=== PATIENT | male | born 1985 | race American Indian/Alaskan Native ===

== ENCOUNTER 2017-02-27 14:52 | Emergency (ER) | payer OTHER, MEDICAID ==
[2017-02-27] MEDS ORDERED: Diphtheria,Pertussis(Acell),Tetanus Vaccine 0.5 ML SDV IM ONE (14:53)
[2017-02-27] MEDS ORDERED: Lidocaine 1% 30 ML SDV INJECT ONE (14:53)
[2017-02-27] MEDS ORDERED: Acetaminophen/HYDROcodone 325-10 MG Tab PO ONE (15:00)
[2017-02-27] MEDS ORDERED: Cephalexin 500 MG Cap PO ONE (15:00)
[2017-02-27] MEDS ORDERED: Bupivacaine 0.25% 10 ML SDV INJECT ONE (15:05)
--- NOTE | 2017-02-27 15:05 | EDM.PDOC ---
ED HPI GENERAL MEDICAL PROBLEM - General Chief Complaint: Laceration Stated Complaint: BLEEDING, LEFT HAND CUT BY CHAINSAW Time Seen by Provider: 02/27/17 14:55 Source of Information: Reports: Patient, RN, RN Notes Reviewed History Limitations: Reports: No Limitations - History of Present Illness INITIAL COMMENTS - FREE TEXT/NARRATIVE: Arrives to ER by POV with c/o cuts to left hand by a chainsaw. Denies any other injury. Last tetanus vaccine >10yrs ago per pt. Onset: Today, Sudden Onset Date: 02/27/17 Onset Time: 14:30 Duration: Constant Location: Reports: Upper Extremity, Left Quality: Reports: Ache Severity: Severe Improves with: Reports: None Worsens with: Reports: None Associated Symptoms: Reports: No Other Symptoms Left Hand Pain Score (Numeric/FACES): 10 - Related Data Allergies Allergy/AdvReac Type Severity Reaction Status Date / Time tramadol Allergy Itching Verified 02/27/17 15:17 Home Meds: Home Meds . [No Known Home Meds] 08/07/14 [History] Past Medical History - Past Health History Medical/Surgical History: Denies Medical/Surgical History Social & Family History - Family History Family Medical History: Noncontributory - Tobacco Use Smoking Status *Q: Never Smoker Years of Tobacco use: 3 Used Tobacco, but Quit: No Second Hand Smoke Exposure: Yes - Alcohol Use Days Per Week of Alcohol Use: 0 - Recreational Drug Use Recreational Drug Use: No - Living Situation & Occupation Living situation: Reports: with Family Occupation: Employed Review of Systems - Review of Systems Review Of Systems: ROS reveals no pertinent complaints other than HPI. ED EXAM, GENERAL - Physical Exam Exam: See Below Exam Limited By: No Limitations General Appearance: Alert, WD/WN, No Apparent Distress, Anxious Nose: Normal Inspection Throat/Mouth: Normal Inspection Head: Atraumatic, Normocephalic Neck: Normal Inspection Respiratory/Chest: No Respiratory Distress Cardiovascular: Normal Peripheral Pulses Peripheral Pulses: 3+: Radial (L), Radial (R) Back Exam: Normal Inspection Extremities: Normal Range of Motion (no tendon rupture/laceration to left hand) , Normal Capillary Refill, Other (jagged, irregular lacerations to dorsum of left hand and proximal fingers 2-5 to depth of muscle, bleeding controlled, no FB) Neurological: Alert, Oriented, CN II-XII Intact, Normal Cognition, Normal Gait, No Motor/Sensory Deficits Psychiatric: Anxious ED TRAUMA EXTREMITY PROCEDURES - Laceration/Wound Repair Left Dorsal Hand Lac/Wound Length In cm: 11 Appearance: Muscle, Stellate, Irregular, Clean Distal NVT: Neuro & Vascular Intact, No Tendon Injury Anesthetic Type: Other (Regional nerve block) Local Anesthesia - Lidocaine (Xylocaine): 1% Plain Local Anesthesia - Bupivicaine (Marcaine): 0.25% Plain Local Anesthetic Volume: Other (20cc bupivicaine, 20cc Lidocaine) Skin Prep: Chlorhexidine (Hibiciens), Saline Saline Irrigation (cc's): 1,000 Exploration/Debridement/Repair: Wound Explored, In a Bloodless Field, Explored to Base, Moderate Debridement, Moderately Undermined Closed With: Sutures Suture Size: 3-0 # of Sutures: 30 Suture Type: Nylon, Interrupted Sterile Dressing Applied: Nurse Tetanus Status Addressed: Yes Complications: No - Splinting Left Upper Extremity Splint Site: left hand Pre-Procedure NV Status: Normal Post-Procedure NV Status: Normal Splint Material: Fiberglass Splint Design: Volar Applied & Form Fitted By: Provider Provider Post-Splint Application NV Check: NV Status Normal, Good Position Complications: No Course - Vital Signs Last Recorded V/S: Last Vital Signs Temp 36.6 C 02/27/17 15:06 Pulse 100 02/27/17 15:06 Resp 20 02/27/17 15:06 BP 136/96 H 02/27/17 15:06 Pulse Ox 100 02/27/17 15:06 - Orders/Labs/Meds Orders: Active Orders 24 hr Category Date Time Status Vaccines to be Administered [RC] PER UNIT ROUTINE Care 02/27/17 14:53 Active Meds: Medications Discontinued Medications Generic Name Dose Route Start Last Admin Trade Name Freq PRN Reason Stop Dose Admin Hydrocodone Bitart/Acetaminophen 1 tab 02/27/17 15:00 02/27/17 15:16 [place] 325-10 Mg PO 02/27/17 15:01 1 tab ONETIME ONE Administration Bacitracin Confirm 02/27/17 16:41 02/27/17 16:49 Bacitracin Oint 1 Gm Administered 02/27/17 16:42 1 dose Dose Administration 1 dose .ROUTE .STK-MED ONE Bupivacaine HCl 20 ml 02/27/17 15:05 02/27/17 15:17 Sensorcaine-Mpf 0.25% INJECT 02/27/17 15:06 20 ml ONETIME ONE Administration Cephalexin 500 mg 02/27/17 15:00 02/27/17 15:16 Keflex PO 02/27/17 15:01 500 mg ONETIME ONE Administration Diphtheria/Tetanus/Acell Pertussis 0.5 ml 02/27/17 14:53 02/27/17 15:04 Adacel IM 02/27/17 14:54 0.5 ml .ONCE ONE Administration Lidocaine HCl 30 ml 02/27/17 14:53 02/27/17 15:05 Xylocaine-Mpf 1% INJECT 02/27/17 14:54 30 ml ONETIME ONE Administration Departure - Departure Time of Disposition: 17:00 Disposition: Home, Self-Care 01 Condition: Good Clinical Impression: Work related injury Laceration of left hand Qualifiers: Encounter type: initial encounter Foreign body presence: without foreign body Qualified Code(s): S61.412A - Laceration without foreign body of left hand, initial encounter - Discharge Information Instructions: Laceration Care, Adult, [id number] Forms: ED Department Discharge Additional Instructions: Follow up in clinic for wound recheck in 4 days. Follow up in clinc for suture removal in 7 to 10 days. Return to ER if any signs of infection develop. Rx: Cephalexin 500mg Rx: [place] 5mg/325mg
[2017-02-27 15:15] VITALS: BP 136/96
[2017-02-27] MEDS ORDERED: Bacitracin Oint 1 GM U/D Packet ONE (16:41)
[2017-03-08] MEDS ORDERED: Bacitracin Oint 1 GM U/D Packet TOP ONE (06:51)
== END 2017-02-27 17:13 | disposition home or self-care (01) ==
LOC: DL.ED 14:52
DX: S61.412A Laceration without foreign body of left hand, initial encounter (principal); Z23 Encounter for immunization; Z88.6 Allergy status to analgesic agent; W29.3XXA Contact with powered garden and outdoor hand tools and machinery, initial encounter
CPT/HCPCS: 12004; 90471; 90715; 99283; A9270

== ENCOUNTER 2017-03-03 09:18 | Emergency (ER) | payer OTHER, MEDICAID ==
[2017-03-03 09:34] VITALS: BP 130/78
--- NOTE | 2017-03-03 09:43 | EDM.PDOC ---
ED HPI GENERAL MEDICAL PROBLEM - General Chief Complaint: Upper Extremity Injury/Pain Stated Complaint: [id number] WORKERS COMP LEFT HAND Time Seen by Provider: 03/03/17 09:38 Source of Information: Reports: Patient History Limitations: Reports: No Limitations - History of Present Illness INITIAL COMMENTS - FREE TEXT/NARRATIVE: 31 yo [place] Male seen in ER on 02/27/2017 for laceration of hand. Pt. here for wound check. Pt. taking oral antibiotic as prescribed. Pt. requesting more narcotic medications. Onset Date: 02/27/17 Onset Time: 12:00 Duration: Day(s): Location: Reports: Upper Extremity, Left Quality: Reports: Ache Severity: Moderate Improves with: Reports: None Worsens with: Reports: None Context: Reports: Trauma Associated Symptoms: Reports: No Other Symptoms Hand Pain Score (Numeric/FACES): 8 - Related Data Allergies Allergy/AdvReac Type Severity Reaction Status Date / Time tramadol Allergy Itching Verified 02/27/17 15:17 Home Meds: Home Meds . [No Known Home Meds] 08/07/14 [History] Past Medical History - Past Health History Medical/Surgical History: Denies Medical/Surgical History - Infectious Disease History Infectious Disease History: Reports: Hepatitis C Social & Family History - Family History Family Medical History: Noncontributory - Tobacco Use Smoking Status *Q: Never Smoker Years of Tobacco use: 3 Packs/Tins Daily: 0.6 Used Tobacco, but Quit: No Second Hand Smoke Exposure: Yes - Caffeine Use Caffeine Use: Reports: Coffee - Alcohol Use Days Per Week of Alcohol Use: 0 - Recreational Drug Use Recreational Drug Use: No - Living Situation & Occupation Living situation: Reports: with Family Occupation: Employed Review of Systems - Review of Systems Review Of Systems: See Below Constitutional: Reports: No Symptoms Eyes: Reports: No Symptoms Ears: Reports: No Symptoms Nose: Reports: No Symptoms Mouth/Throat: Reports: No Symptoms Respiratory: Reports: No Symptoms Cardiovascular: Reports: No Symptoms GI/Abdominal: Reports: No Symptoms Genitourinary: Reports: No Symptoms Musculoskeletal: Reports: Hand Pain (left dorsal) Skin: Reports: Wound (sutures in place and wound w/o signs of infection w/o drainage) Neurological: Reports: No Symptoms Psychiatric: Reports: No Symptoms ED EXAM, GENERAL - Physical Exam Exam: See Below Exam Limited By: No Limitations General Appearance: Alert, No Apparent Distress Eye Exam: Bilateral Eye: PERRL Ears: Normal External Exam Nose: Normal Inspection Throat/Mouth: Normal Inspection, Normal Lips Head: Atraumatic Neck: Normal Inspection Respiratory/Chest: No Respiratory Distress Cardiovascular: Normal Peripheral Pulses Peripheral Pulses: 2+: Radial (L), Radial (R) GI/Abdominal: Normal Bowel Sounds Back Exam: Normal Inspection Extremities: Normal Inspection, Other (left dorsal hand with wound edges together and no redness and no drainage) Neurological: Alert, Oriented, CN II-XII Intact, Normal Cognition Psychiatric: Normal Affect Skin Exam: Wound/Incision (wound edges together and no signs of infection w/ min. swelling) Lymphatic: No Adenopathy ED TRAUMA EXTREMITY PROCEDURES - Additional/Other Procedure(s) Other (Free Text) Procedure(s): Pt. wound of left dorsal hand inspected. No signs of infection and sutures in place. Dry gauze dressing applied w/ cling wrap and yu wrap Course - Vital Signs Last Recorded V/S: Last Vital Signs Temp 36.2 C 03/03/17 09:32 Pulse 104 H 03/03/17 09:32 Resp 16 03/03/17 09:32 BP 130/78 03/03/17 09:32 Pulse Ox 99 03/03/17 09:32 Departure - Departure Time of Disposition: 09:45 Disposition: Home, Self-Care 01 Condition: Good Clinical Impression: Laceration of hand Qualifiers: Encounter type: sequela Foreign body presence: without foreign body Laterality : left Qualified Code(s): S61.412S - Laceration without foreign body of left hand, sequela - Discharge Information Additional Instructions: Keep dressing in place X 48 hours Keep left hand elevated above level of heart to decrease swelling F/U w/ PCP for wound evaluation on Sunday03/05/2017 For Pain: NEURONTIN 100mg TID # 10 Also for pain take TYLENOL ES 500mg QID ( otc)
[2017-03-03] MEDS ORDERED: Lidocaine 2% Jelly 5 ML Tube TOP ONE (09:44)
== END 2017-03-03 10:00 | disposition home or self-care (01) ==
LOC: DL.ED 09:18
DX: S61.412D Laceration without foreign body of left hand, subsequent encounter (principal); Z88.6 Allergy status to analgesic agent; X58.XXXD Exposure to other specified factors, subsequent encounter
CPT/HCPCS: 99282

== ENCOUNTER 2021-03-02 20:12 | Emergency (ER) | payer SELFPAY | END 2021-03-02 20:33 | disposition left against medical advice (07) | LOC: DL.ED 20:12 | DX: Z53.21 Procedure and treatment not carried out due to patient leaving prior to being seen by health care provider (principal) ==

== ENCOUNTER 2022-07-13 21:31 | Emergency (ER) | payer MEDICAID | END 2022-07-13 22:12 | disposition left against medical advice (07) | LOC: DL.ED 21:31 | DX: Z53.21 Procedure and treatment not carried out due to patient leaving prior to being seen by health care provider (principal) | CPT/HCPCS: 71045 ==

== ENCOUNTER 2022-10-18 02:35 | Emergency (ER) | payer MEDICAID ==
[2022-10-18] MEDS ORDERED: Sodium Chloride 0.9% 1,000 ML IV ONE (02:59)
[2022-10-18 03:06] LABS: BASOPHILS PERCENT AUTO 0.5 % (0.0-1.0); EOSINOPHILS PERCENT AUTO 4.8 % (1.0-3.0); HEMATOCRIT 43.1 % (40.0-54.0); HEMOGLOBIN 14.9 g/dL (14.0-18.0); LYMPHOCYTES PERCENT AUTO 51.1 % (20.5-50.1); MEAN CORPUSCULAR HEMOGLOBIN 31.1 pg (27.0-34.0); MEAN CORPUSCULAR HGB CONC 34.6 g/dL (33.0-35.0); MONOCYTES PERCENT AUTO 7.7 % (2-8); NEUTROPHILS PERCENT AUTO 35.9 % (42.2-75.2); PLATELET COUNT,PLT 303 10^3/uL (150-450); RED BLOOD CELL COUNT 4.79 10^6/uL (4.6-6.2); WHITE BLOOD CELL COUNT,WBC 8.6 10^3/uL (5.0-10.0)
[2022-10-18 03:11] LABS: AMPHETAMINES,URINE POSITIVE (NEGATIVE); BARBITURATES,URINE NEGATIVE (NEGATIVE); BENZODIAZEPINE,URINE NEGATIVE (NEGATIVE); MDMA (ECSTASY), URINE NEGATIVE (NEGATIVE); METHADONE,URINE NEGATIVE (NEGATIVE); METHAMPHETAMINES,URINE POSITIVE (NEGATIVE); OPIATES,URINE NEGATIVE (NEGATIVE); OXYCODONE,URINE NEGATIVE (NEGATIVE); PHENCYCLIDINE,URINE NEGATIVE (NEGATIVE); TCA,URINE NEGATIVE (NEGATIVE)
[2022-10-18 03:14] LABS: A/G RATIO 1.2; ALANINE AMINOTRANSFERASE,ALT 35 U/L (16-63); ALBUMIN 3.9 g/dL (3.4-5.0); ALKALINE PHOSPHATASE 81 U/L (46-116); ANION GAP 14.1 mEq/L (7-13); ASPARTATE AMNIOTRANSFERASE,AST 25 U/L (15-37); BILIRUBIN TOTAL 0.2 mg/dL (0.2-1.0); BLOOD UREA NITROGEN,BUN 12 mg/dL (7-18); BUN/CREATININE RATIO 12.6 (No establ ref range); CARBON DIOXIDE,CO2 24 mmol/L (21-32); CHLORIDE,CL 106 mmol/L (98-107); CREATININE 0.95 mg/dL (0.70-1.30); ESTIMATED GFR 106 mL/min (>=60); ETHANOL BLOOD MEDICAL 281 mg/dL (0); GLUCOSE RANDOM 103 mg/dL (70-99); POTASSIUM,K 3.1 mmol/L (3.5-5.1); PROTEIN TOTAL,TP 7.1 g/dL (6.4-8.2); SODIUM,NA 141 mmol/L (136-145)
== END 2022-10-18 06:34 | disposition left against medical advice (07) ==
LOC: DL.ED 02:35
DX: F10.920 Alcohol use, unspecified with intoxication, uncomplicated (principal); Y90.8 Blood alcohol level of 240 mg/100 ml or more; Z88.5 Allergy status to narcotic agent; Z91.040 Latex allergy status
CPT/HCPCS: 36415; 80053; 80305-QW; 80307; 85025; 93005; 96360; 99285-25; C1758; J7030

== ENCOUNTER 2023-01-15 19:49 | Emergency (ER) | payer MEDICAID ==
[2023-01-15] MEDS ORDERED: Sodium Chloride 0.9% 10 ML Syringe FLUSH PRN (19:55)
[2023-01-15] MEDS ORDERED: Ondansetron 4 MG/2 ML SDV IVPUSH ONE (19:55)
[2023-01-15] MEDS ORDERED: Sodium Chloride 0.9% 1,000 ML IV ONE (19:55)
[2023-01-15] MEDS ORDERED: fentaNYL 100 MCG/2 ML SDV IVPUSH ONE ×2 (19:55→23:56)
[2023-01-15 20:26] LABS: BASOPHILS PERCENT AUTO 0.3 % (0.0-1.0); EOSINOPHILS PERCENT AUTO 3.5 % (1.0-3.0); HEMATOCRIT 43.5 % (40.0-54.0); HEMOGLOBIN 15.1 g/dL (14.0-18.0); LYMPHOCYTES PERCENT AUTO 24.9 % (20.5-50.1); MEAN CORPUSCULAR HEMOGLOBIN 31.5 pg (27.0-34.0); MEAN CORPUSCULAR HGB CONC 34.7 g/dL (33.0-35.0); MEAN CORPUSCULAR VOLUME 90.8 fL (80-100); NEUTROPHILS PERCENT AUTO 63.3 % (42.2-75.2); PLATELET COUNT,PLT 294 10^3/uL (150-450); RED BLOOD CELL COUNT 4.79 10^6/uL (4.6-6.2)
[2023-01-15 20:51] LABS: A/G RATIO 1.1; ALBUMIN 4.1 g/dL (3.4-5.0); ANION GAP 14.5 mEq/L (7-13); BILIRUBIN TOTAL 0.3 mg/dL (0.2-1.0); CALCIUM 8.5 mg/dL (8.5-10.1); CREATININE 1.15 mg/dL (0.70-1.30); EST CRCL DRUG DOSING (CG) 97.47 mL/min; POTASSIUM,K 3.5 mmol/L (3.5-5.1); PROTEIN TOTAL,TP 7.9 g/dL (6.4-8.2)
[2023-01-15 20:53] LABS: INR 0.9 (0.9-1.2); PROTHROMBIN TIME 9.3 SEC (9.0-12.0)
[2023-01-15] MEDS ORDERED: Ketamine 500 MG in Sodium Chloride 0.9% 500 ML IV ONE (21:32)
[2023-01-15] MEDS ORDERED: Midazolam 50 MG in Sodium Chloride 0.9% 40 ML IV SCH (21:45)
[2023-01-15 22:43] LABS: O2 DELIVERY DEVICE VENTILATOR
[2023-01-15 22:44] LABS: BASE EXCESS ARTERIAL -6 mmol/L ((-2)-(+3)); BICARBONATE,ARTERIAL 19.1 mmol/L (22-26); O2 SATURATION ARTERIAL 99 % (95-100); PCO2 ARTERIAL 40 mmHg (35-45); PO2 ARTERIAL 142 mmHg (70-100)
[2023-01-15 22:47] LABS: ALLEN TEST positive
[2023-01-15] MEDS ORDERED: Albuterol/Ipratropium 3.0-0.5 MG/3 ML Neb Soln ONE (23:21)
[2023-01-15 23:26] LABS: APPEARANCE,URINE SLIGHTLY CLOUDY (CLEAR); BILIRUBIN,URINE NEGATIVE (NEGATIVE); COLOR,URINE YELLOW (YELLOW); GLUCOSE,URINE NEGATIVE (NEGATIVE); KETONES,URINE NEGATIVE (NEGATIVE); LEUKOCYTE ESTERASE,URINE NEGATIVE (NEGATIVE); NITRITE,URINE NEGATIVE (NEGATIVE); OCCULT BLOOD,URINE NEGATIVE (NEGATIVE); PH,URINE 5.5 (5.0-9.0); PROTEIN,URINE 30 (NEGATIVE); UROBILINOGEN,URINE 0.2 mg/dL (0.2-1.0)
[2023-01-15 23:31] LABS: AMPHETAMINES,URINE POSITIVE (NEGATIVE); BARBITURATES,URINE NEGATIVE (NEGATIVE); BENZODIAZEPINE,URINE NEGATIVE (NEGATIVE); MDMA (ECSTASY), URINE NEGATIVE (NEGATIVE); METHADONE,URINE NEGATIVE (NEGATIVE); METHAMPHETAMINES,URINE POSITIVE (NEGATIVE); OPIATES,URINE NEGATIVE (NEGATIVE); OXYCODONE,URINE NEGATIVE (NEGATIVE); PHENCYCLIDINE,URINE NEGATIVE (NEGATIVE); TCA,URINE NEGATIVE (NEGATIVE)
[2023-01-15 23:34] LABS: AMORPHOUS SEDIMENT,URINE MODERATE /HPF (NOT SEEN); BACTERIA,URINE MODERATE /HPF (0-FEW/HPF); EPITHELIAL CELLS,URINE OCCASIONAL /HPF (NOT SEEN); RBC,URINE NOT SEEN /HPF (0-5); WBC,URINE NOT SEEN /HPF (0-5/HPF)
[2023-01-15] MEDS ORDERED: fentaNYL 500 MCG in Sodium Chloride 0.9% 50 ML IV SCH (23:45)
[2023-01-15] MEDS ORDERED: fentaNYL 100 MCG/2 ML SDV ONE (23:49)
== END 2023-01-16 02:45 ==
LOC: DL.ED 19:49
DX: F15.129 Other stimulant abuse with intoxication, unspecified (principal); F10.920 Alcohol use, unspecified with intoxication, uncomplicated; R40.2422 Glasgow coma scale score 9-12, at arrival to emergency department; Z91.040 Latex allergy status; Z88.5 Allergy status to narcotic agent; Y04.0XXA Assault by unarmed brawl or fight, initial encounter; Y90.6 Blood alcohol level of 120-199 mg/100 ml
CPT/HCPCS: 31500; 36415; 36600; 43752; 51702; 70450; 70486; 71045; 72125; 80053; 80305-QW; 80307; 81001; 82803; 85025; 85610; 85730; 94640; 96361; 96365; 96366; 96367; 96368; 96375; 96376; 99285; 99285-25; J2250; J2405; J3010; J3490; J7030; J7040; J7620-GY

== ENCOUNTER 2023-10-20 03:44 | Emergency (ER) | payer SELFPAY ==
[2023-10-20 03:51] LABS: BASOPHILS PERCENT AUTO 0.3 % (0.0-1.0); EOSINOPHILS PERCENT AUTO 1.3 % (1.0-3.0); HEMATOCRIT 43.5 % (40.0-54.0); LYMPHOCYTES PERCENT AUTO 41.6 % (20.5-50.1); MEAN CORPUSCULAR HEMOGLOBIN 31.2 pg (27.0-34.0); MEAN CORPUSCULAR HGB CONC 34.5 g/dL (33.0-35.0); MEAN CORPUSCULAR VOLUME 90.4 fL (80-100); MONOCYTES PERCENT AUTO 11.1 % (2-8); NEUTROPHILS PERCENT AUTO 45.7 % (42.2-75.2); PLATELET COUNT,PLT 266 10^3/uL (150-450); RED BLOOD CELL COUNT 4.81 10^6/uL (4.6-6.2); WHITE BLOOD CELL COUNT,WBC 9.2 10^3/uL (5.0-10.0)
[2023-10-20] MEDS: Sodium Chloride 0.9% 1,000 ML IV ONE (04:10)
[2023-10-20 04:14] LABS: A/G RATIO 1.2; ALANINE AMINOTRANSFERASE,ALT 33 U/L (16-63); ALBUMIN 3.9 g/dL (3.4-5.0); ALKALINE PHOSPHATASE 136 U/L (46-116); ASPARTATE AMNIOTRANSFERASE,AST 32 U/L (15-37); BILIRUBIN TOTAL 0.2 mg/dL (0.2-1.0); BLOOD UREA NITROGEN,BUN 12 mg/dL (7-18); BUN/CREATININE RATIO 13.8 (No establ ref range); CARBON DIOXIDE,CO2 26 mmol/L (21-32); CHLORIDE,CL 109 mmol/L (98-107); CREATININE 0.87 mg/dL (0.70-1.30); GLUCOSE RANDOM 126 mg/dL (70-99); LIPASE 75 U/L (16-77); PROTEIN TOTAL,TP 7.2 g/dL (6.4-8.2); SODIUM,NA 147 mmol/L (136-145)
[2023-10-20 04:15] LABS: ESTIMATED GFR 114 mL/min (>=60)
[2023-10-20] MEDS: Iopamidol 612 MG/ML 100 ML Bottle IVPUSH ONE (04:42)
[2023-10-20 05:01] LABS: APPEARANCE,URINE CLEAR (CLEAR); BILIRUBIN,URINE NEGATIVE (NEGATIVE); COLOR,URINE YELLOW (YELLOW); GLUCOSE,URINE NEGATIVE (NEGATIVE); KETONES,URINE NEGATIVE (NEGATIVE); LEUKOCYTE ESTERASE,URINE NEGATIVE (NEGATIVE); NITRITE,URINE NEGATIVE (NEGATIVE); OCCULT BLOOD,URINE TRACE-INTACT (NEGATIVE); PH,URINE 5.5 (5.0-9.0); PROTEIN,URINE NEGATIVE (NEGATIVE); UROBILINOGEN,URINE 0.2 mg/dL (0.2-1.0)
[2023-10-20 05:05] LABS: METHAMPHETAMINES,URINE POSITIVE (NEGATIVE)
[2023-10-20 05:06] LABS: AMPHETAMINES,URINE NEGATIVE (NEGATIVE); BARBITURATES,URINE NEGATIVE (NEGATIVE); BENZODIAZEPINE,URINE NEGATIVE (NEGATIVE); MDMA (ECSTASY), URINE NEGATIVE (NEGATIVE); METHADONE,URINE NEGATIVE (NEGATIVE); OPIATES,URINE NEGATIVE (NEGATIVE); OXYCODONE,URINE NEGATIVE (NEGATIVE); PHENCYCLIDINE,URINE NEGATIVE (NEGATIVE); TCA,URINE NEGATIVE (NEGATIVE)
[2023-10-20 05:12] LABS: AMORPHOUS SEDIMENT,URINE RARE /HPF (NOT SEEN); BACTERIA,URINE RARE /HPF (0-FEW/HPF); EPITHELIAL CELLS,URINE MODERATE /HPF (NOT SEEN); MUCUS,URINE FEW /LPF (NOT SEEN); RBC,URINE 0-5 /HPF (0-5); WBC,URINE 0-5 /HPF (0-5/HPF)
== END 2023-10-20 07:09 | disposition home or self-care (01) ==
LOC: DL.ED 03:44
DX: S16.1XXA Strain of muscle, fascia and tendon at neck level, initial encounter (principal); S30.0XXA Contusion of lower back and pelvis, initial encounter; S00.83XA Contusion of other part of head, initial encounter; F15.120 Other stimulant abuse with intoxication, uncomplicated; F10.120 Alcohol abuse with intoxication, uncomplicated; Z91.040 Latex allergy status; Z88.5 Allergy status to narcotic agent; Y04.8XXA Assault by other bodily force, initial encounter; Y90.9 Presence of alcohol in blood, level not specified
CPT/HCPCS: 36415; 70450; 71260; 72125; 72128; 72131; 74177; 80053; 80305-QW; 80307; 81001; 83690; 84484; 85025; 96360; 99284; 99284-25; J7030; Q9967

== ENCOUNTER 2024-05-15 16:03 | Emergency (ER) | payer SELFPAY ==
[2024-05-15] MEDS: Bacitracin Oint 1 GM U/D Packet TOP ONE (16:27)
[2024-05-15] MEDS: Lidocaine 1% 50 MG/5 ML Syringe ONE (16:28)
== END 2024-05-15 16:28 | disposition home or self-care (01) ==
LOC: DL.ED 16:03
DX: S01.81XA Laceration without foreign body of other part of head, initial encounter (principal); Z88.5 Allergy status to narcotic agent; Z91.040 Latex allergy status; W50.0XXA Accidental hit or strike by another person, initial encounter
CPT/HCPCS: 12013; 99282; 99283; A9270-GY